=== PATIENT | female | born 1980 | race Caucasian/White ===

== ENCOUNTER 2017-09-22 07:22 | Outpatient (CLI) | payer BC ==
[~2017-09-22] VITALS: Ht 157.5 cm; Wt 59.0 kg
[2017-09-22 07:50] LABS: TOTAL HEMOGLOBIN 11.6 G/dl (12.0-16.0)
[2017-09-22] MEDS ORDERED: albuterol 2.5 MG/3 ML nebule NEB ONE (08:20)
== END 2017-09-22 23:59 | disposition home or self-care (01) ==
LOC: RT 07:22
PROVIDERS: ATTEND Internal Medicine Pulmonary Disease
DX: R05 Cough (principal)
CPT/HCPCS: 85018; 94060; 94640; 94727; 94729; 94760

== ENCOUNTER 2018-11-01 10:05 | Outpatient (CLI) | payer BC ==
[2018-11-01] MEDS ORDERED: iohexol 350MG/ML 100ml bottle IV ONE (10:13)
== END 2018-11-01 23:59 | disposition home or self-care (01) ==
LOC: 64 CT 10:05
PROVIDERS: ATTEND Internal Medicine Critical Care Medicine
DX: I26.99 Other pulmonary embolism without acute cor pulmonale (principal)
CPT/HCPCS: 71275; Q9967